=== PATIENT | female | born 1990 | race Caucasian/White ===

== ENCOUNTER 2024-10-14 21:16 | Emergency (ER) | payer OTHER ==
[2024-10-14] MEDS: hydrOXYzine HCL 25 MG TAB PO STA (21:58)
[2024-10-14] MEDS: DIPH,PERTUS(ACELL)TETVAC-LF 0.5 ML VIAL IM ONE (21:59)
[2024-10-14] MEDS: LIDOCAINE 1% INJ 10MG/ML (20 ML MDV) SQ ONE (22:00)
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
[2024-10-14] MEDS: AZITHROMYCIN 500 MG TAB PO STA (22:49)
[2024-10-14] MEDS: cefTRIAXone 250 MG VIAL IM STA (22:49)
[2024-10-14] MEDS: metroNIDAZOLE 500 MG TAB PO STA (22:49)
[2024-10-15 00:38] LABS: Appearance,Urine Clear (Clear); Bacteria,Urine Moderate /hpf; Bilirubin,Urine Negative (Negative); Blood,Urine Negative (Negative); Budding Yeast,Urine Rare /hpf; Color,Urine Colorless; Glucose,Urine (UA) Negative (Negative); Hyaline Casts,Urine 3 /lpf (0-2); Ketones,Urine Negative (Negative); Leukocyte Esterase,Urine Moderate (Negative); Nitrite,Urine Negative (Negative); PH, Urine 6.5 (5.0-8.0); Protein,Urine Negative (Negative); RBC,Urine 1 /hpf (0-5); Specific Gravity,Urine 1.005 (1.001-1.035); Squamous Epithelial Cell,Urine 1 /hpf (0-4); Urobilinogen,Urine <2.0 mg/dL (<2.0); WBC,Urine 17 /hpf (0-5)
[2024-10-15 01:39] VITALS: BP 93/56; PULSE 116; RESP 22; TEMP 98.1
[2024-10-15 14:57] LABS: C. trachomatis,PCR Negative (Negative); N. gonorrhoeae,PCR Negative (Negative)
== END 2024-10-15 01:35 | disposition home or self-care (01) ==
LOC: EC 21:16
DX: S51.812A Laceration without foreign body of left forearm, initial encounter (principal); N39.0 Urinary tract infection, site not specified; F17.200 Nicotine dependence, unspecified, uncomplicated; Z23 Encounter for immunization; Y04.0XXA Assault by unarmed brawl or fight, initial encounter
CPT/HCPCS: 81001; 81025; 87491; 87591; 87086; 90715; 99284; 90471; 96372; J2003; J0696

== ENCOUNTER 2024-10-15 10:19 | Emergency (ER) | payer OTHER ==
[2024-10-15 10:22] VITALS: TEMP 97.7
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
[2024-10-15] MEDS: ACETAMINOPHEN TAB 500 MG TAB PO STA (10:51)
[2024-10-15] MEDS: CEPHALEXIN 500 MG CAP PO STA (10:51)
[2024-10-15] MEDS: KETOROLAC 15 MG/ML 1 ML VIAL IM STA (10:51)
[2024-10-15 11:53] VITALS: BP 106/73; PULSE 96; RESP 20
== END 2024-10-15 11:53 | disposition home or self-care (01) ==
LOC: EC 10:19
DX: S51.812A Laceration without foreign body of left forearm, initial encounter (principal); F17.200 Nicotine dependence, unspecified, uncomplicated; X99.9XXA Assault by unspecified sharp object, initial encounter
CPT/HCPCS: 99283; 96372; J1885